=== PATIENT | female | born 1955 | race Caucasian/White ===

== ENCOUNTER → 2018-12-15 07:59 | Outpatient (CLI) | payer MEDICARE, SELFPAY ==
[2018-12-15 10:33] LABS: Cholesterol 237 mg/dL (140-199); Glucose 89 mg/dL (80-110); HDL Cholesterol 79 mg/dL (40-60); LDL Cholesterol Calculated 146 mg/dL (<100); Triglycerides 62 mg/dL (35-150)
== END ==
PROVIDERS: Visit Provider Physician Assistant
DX: Z13.1 Encounter for screening for diabetes mellitus (principal); Z13.220 Encounter for screening for lipoid disorders; Z13.6 Encounter for screening for cardiovascular disorders
CPT/HCPCS: 36415; 80061; 82947

== ENCOUNTER → 2018-12-29 09:49 | Outpatient (CLI) | payer MEDICARE, SELFPAY | PROVIDERS: PCP Physician Assistant; Visit Provider Physician Assistant | DX: Z78.0 Asymptomatic menopausal state (principal); E28.39 Other primary ovarian failure; Z82.62 Family history of osteoporosis | CPT/HCPCS: 77080 ==